=== PATIENT | female | born 1990 | race Caucasian/White ===

== ENCOUNTER 2023-04-25 23:35 | Emergency (ER) | payer OTHER ==
[2023-04-25] MEDS ORDERED: Sodium Chloride 0.9% 1,000 ML IV SCH (23:45)
[2023-04-25] MEDS ORDERED: Sodium Chloride 0.9% 10 ML Syringe FLUSH PRN (23:49)
[2023-04-25] MEDS ORDERED: Ondansetron 4 MG/2 ML SDV IVPUSH ONE (23:51)
[2023-04-25] MEDS ORDERED: HYDROmorphone 0.5 MG/0.5 ML Syringe IVPUSH ONE (23:51)
[2023-04-26 00:30] LABS: BASOPHILS PERCENT AUTO 0.3 % (0.2-1.2); EOSINOPHILS ABSOLUTE AUTO 0.4 x10^3/uL (0.0-0.5); EOSINOPHILS PERCENT AUTO 3.6 % (0.0-4.0); HEMATOCRIT 39.6 % (33.0-47.0); HEMOGLOBIN 13.4 g/dL (12.0-16.0); IMMATURE GRAN ABSOLUTE AUTO 0.02 x10^3/uL (0.00-0.07); LYMPHOCYTES ABSOLUTE AUTO 4.2 x10^3/uL (1.0-4.8); LYMPHOCYTES PERCENT AUTO 36.6 % (25.0-50.0); MEAN CORPUSCULAR HGB CONC 33.8 g/dL (32.0-36.0); MEAN CORPUSCULAR VOLUME 91.7 fL (78.0-93.0); MONOCYTES ABSOLUTE AUTO 0.7 x10^3/uL (0.0-0.8); MONOCYTES PERCENT AUTO 6.4 % (2.0-11.0); NEUTROPHILS ABSOLUTE AUTO 6.1 x10^3/uL (1.8-7.7); NEUTROPHILS PERCENT AUTO 52.9 % (50.0-80.0); PLATELET COUNT,PLT 321 x10^3/uL (130-400); RED BLOOD CELL COUNT 4.32 x10^6/uL (4.00-5.50); WHITE BLOOD CELL COUNT,WBC 11.4 x10^3/uL (4.0-10.0)
[2023-04-26 00:51] LABS: A/G RATIO 0.74; ALBUMIN 3.4 g/dL (3.4-5.0); BILIRUBIN TOTAL 0.2 mg/dL (0.2-1.0); C-REACTIVE PROTEIN 3.2 mg/dL (<=0.9); CALCIUM 9.8 mg/dL (8.5-10.1); CREATININE 0.8 mg/dL (0.55-1.02); EST CRCL DRUG DOSING (CG) 110.18 mL/min; POTASSIUM,K 4.2 mmol/L (3.5-5.1)
[2023-04-26 00:54] LABS: LACTIC ACID 1.3 mmol/L (0.4-2.0)
[2023-04-26 01:02] LABS: ANION GAP 16.2 mmol/L (5-15)
[2023-04-26] MEDS ORDERED: Take Home: Acetaminophen/HYDROcodone 325-5 MG, 5 Tab Pack PO ONE (01:15)
[2023-04-26] MEDS ORDERED: Take Home: Ondansetron 4 MG Tab.DIS, 5 Tab Pack PO ONE (01:15)
== END 2023-04-26 01:26 | disposition home or self-care (01) ==
LOC: VM.ED 23:35
DX: K80.20 Calculus of gallbladder without cholecystitis without obstruction (principal); Z88.8 Allergy status to other drugs, medicaments and biological substances; Z88.1 Allergy status to other antibiotic agents
CPT/HCPCS: 80053; 82150; 83605; 83690; 85025; 86140; 96361; 96374; 96375; 99284; 99284-25; A9270-GY; J1170; J2405; J7030; Q0162

== ENCOUNTER 2024-10-19 17:07 | Emergency (ER) | payer OTHER, BC | END 2024-10-19 18:39 | disposition home or self-care (01) | LOC: VM.ED 17:07 → SUPCPDRO 17:07 → VM.ED 18:39 | DX: S80.12XA Contusion of left lower leg, initial encounter (principal); Z91.041 Radiographic dye allergy status; Z88.1 Allergy status to other antibiotic agents; Z88.8 Allergy status to other drugs, medicaments and biological substances; W00.0XXA Fall on same level due to ice and snow, initial encounter; Y99.0 Civilian activity done for income or pay | CPT/HCPCS: 73562-LT; 99283 ==

== ENCOUNTER 2025-01-10 17:27 | Emergency (ER) | payer BC, OTHER ==
[2025-01-10] MEDS ORDERED: cefTRIAXone 1 GM Vial IVPUSH ONE (18:12)
[2025-01-10] MEDS ORDERED: Sodium Chloride 0.9% 10 ML Syringe FLUSH PRN (18:37)
[2025-01-10] MEDS: Ketorolac 15 MG/ML SDV IVPUSH ONE (18:43)
[2025-01-10] MEDS: Ondansetron 4 MG/2 ML SDV IVPUSH ONE (18:43)
[2025-01-10 18:44] LABS: BASOPHILS PERCENT AUTO 0.2 % (0.2-1.2); EOSINOPHILS ABSOLUTE AUTO 0.1 x10^3/uL (0.0-0.5); EOSINOPHILS PERCENT AUTO 0.4 % (0.0-4.0); HEMATOCRIT 44.3 % (33.0-47.0); HEMOGLOBIN 15.1 g/dL (12.0-16.0); IMMATURE GRAN ABSOLUTE AUTO 0.02 x10^3/uL (0.00-0.07); LYMPHOCYTES ABSOLUTE AUTO 0.8 x10^3/uL (1.0-4.8); LYMPHOCYTES PERCENT AUTO 5.3 % (25.0-50.0); MEAN CORPUSCULAR HEMOGLOBIN 31.1 pg (26.0-32.0); MEAN CORPUSCULAR HGB CONC 34.1 g/dL (32.0-36.0); MEAN CORPUSCULAR VOLUME 91.2 fL (78.0-93.0); MONOCYTES ABSOLUTE AUTO 0.4 x10^3/uL (0.0-0.8); MONOCYTES PERCENT AUTO 2.8 % (2.0-11.0); NEUTROPHILS ABSOLUTE AUTO 14.4 x10^3/uL (1.8-7.7); NEUTROPHILS PERCENT AUTO 91.2 % (50.0-80.0); PLATELET COUNT,PLT 305 x10^3/uL (130-400); RED BLOOD CELL COUNT 4.86 x10^6/uL (4.00-5.50); WHITE BLOOD CELL COUNT,WBC 15.7 x10^3/uL (4.0-10.0)
[2025-01-10] MEDS: HYDROmorphone 0.5 MG/0.5 ML Syringe IVPUSH ONE (18:44)
[2025-01-10] MEDS: Lactated Ringers 1,000 ML IV ONE (18:44)
[2025-01-10 18:52] LABS: C-REACTIVE PROTEIN 2.19 mg/dL (<=0.50); MAGNESIUM 1.5 mg/dL (1.8-2.4)
[2025-01-10 18:59] LABS: LACTIC ACID 1.9 mmol/L (0.4-2.0)
[2025-01-10 19:06] LABS: A/G RATIO 0.88; ALANINE AMINOTRANSFERASE,ALT 51 U/L (14-59); ALBUMIN 3.8 g/dL (3.4-5.0); ALKALINE PHOSPHATASE 97 U/L (46-116); ANION GAP 17.1 mmol/L (5-15); ASPARTATE AMNIOTRANSFERASE,AST 32 U/L (15-37); BILIRUBIN TOTAL 0.7 mg/dL (0.2-1.0); BLOOD UREA NITROGEN,BUN 15 mg/dL (7-18); CALCIUM 9.4 mg/dL (8.5-10.1); CARBON DIOXIDE,CO2 25 mmol/L (21-32); CHLORIDE,CL 100 mmol/L (98-107); CREATININE 0.8 mg/dL (0.55-1.02); ESTIMATED GFR 100 mL/min (>=60); GLUCOSE RANDOM 114 mg/dL (70-99); POTASSIUM,K 4.1 mmol/L (3.5-5.1); PROTEIN TOTAL,TP 8.1 g/dL (6.4-8.2); SODIUM,NA 138 mmol/L (136-145)
[2025-01-10 19:31] LABS: BILIRUBIN,URINE SMALL (NEGATIVE); COLOR,URINE DARK YELLOW (YELLOW); GLUCOSE,URINE NEGATIVE (NEGATIVE); KETONES,URINE TRACE mg/dL (NEGATIVE); LEUKOCYTE ESTERASE,URINE NEGATIVE (NEGATIVE); NITRITE,URINE NEGATIVE (NEGATIVE); OCCULT BLOOD,URINE NEGATIVE (NEGATIVE); PH,URINE 5.5 (5.0-8.0); PROTEIN,URINE >=300 mg/dL (NEGATIVE); UROBILINOGEN,URINE 0.2 EU/dL (0.2)
[2025-01-10 19:33] LABS: APPEARANCE,URINE SLIGHTLY CLOUDY (CLEAR)
[2025-01-10 19:37] LABS: BACTERIA,URINE OCCASIONAL /HPF (NOT SEEN); MUCUS,URINE FEW /LPF (NOT SEEN); RBC,URINE 0-5 /HPF (NOT SEEN); SQUAMOUS EPITHELIAL CELLS,UR FEW /HPF (NOT SEEN); WBC,URINE 0-5 /HPF (NOT SEEN)
[2025-01-10] MEDS: Take Home: Ondansetron 4 MG Tab.DIS, 5 Tab Pack PO ONE (21:08)
== END 2025-01-10 21:11 | disposition home or self-care (01) ==
LOC: VM.ED 17:27
DX: R10.31 Right lower quadrant pain (principal); R11.2 Nausea with vomiting, unspecified; R10.13 Epigastric pain; Z88.1 Allergy status to other antibiotic agents; Z88.8 Allergy status to other drugs, medicaments and biological substances; Z91.041 Radiographic dye allergy status
CPT/HCPCS: 74176; 80053; 81001; 81025; 82150; 83605; 83690; 83735; 85025; 86140; 93010; 96361; 96374; 96375; 99284; 99284-25; J1885; J2405; J7120; Q0162